=== PATIENT | female | born 1995 | race Caucasian/White ===

== ENCOUNTER → 2024-02-16 09:04 | Outpatient (REF) | payer BC, OTHER, SELFPAY | LOC: CPAP 09:04 | PROVIDERS: ATTENDING PHYSICIAN Nurse Practitioner Family | DX: Z34.90 Encounter for supervision of normal pregnancy, unspecified, unspecified trimester (principal); Z01.419 Encounter for gynecological examination (general) (routine) without abnormal findings; Z12.4 Encounter for screening for malignant neoplasm of cervix; Z11.51 Encounter for screening for human papillomavirus (HPV) | CPT/HCPCS: G0123 ==

== ENCOUNTER → 2024-04-18 07:39 | Outpatient (REF) | payer BC, OTHER, SELFPAY ==
[2024-04-18 10:45] LABS: ALT (SGPT) 17 U/L (0-35); AST (SGOT) 27 U/L (14-36); Albumin 4.4 g/dl (3.5-5.0); Alkaline Phosphatase 51 U/L (38-126); Blood Urea Nitrogen 10 mg/dl (7-17); Calcium 9.4 mg/dl (8.4-10.2); Carbon Dioxide 25 mmol/L (22-30); Chloride 102 mmol/L (98-107); Glucose 86 mg/dl (70-99); Potassium 4.4 mmol/L (3.5-5.1); Sodium 138 mmol/L (135-145); Total Bilirubin 0.5 mg/dl (0.2-1.3); Total Protein 7.6 g/dl (6.3-8.2); eGFR > 60.00
[2024-04-18 11:06] LABS: Free T4 1.38 ng/dl (0.78-2.19); Prolactin 81.7 ng/ml (3.0-18.6)
[2024-04-18 11:20] LABS: TSH 4.32 uIU/ml (0.47-4.68)
[2024-04-20 06:03] LABS: IGF-1 Z Score Calculation -0.4; Insulin-like Growth Factor I 170 ng/mL (98-305)
== END ==
LOC: REG 07:39
PROVIDERS: ATTENDING PHYSICIAN Internal Medicine Endocrinology, Diabetes & Metabolism; FAMILY PHYSICIAN Student in an Organized Health Care Education/Training Program
DX: E89.0 Postprocedural hypothyroidism (principal); E22.1 Hyperprolactinemia; Z86.39 Personal history of other endocrine, nutritional and metabolic disease; Z92.3 Personal history of irradiation
CPT/HCPCS: 36415; 80053; 84146; 84305; 84439; 84443

== ENCOUNTER → 2024-12-06 07:39 | Outpatient (REF) | payer BC, SELFPAY ==
[2024-12-06 08:35] LABS: Hemoglobin 12.6 g/dL (12.0-16.0); Mean Corp Hgb Conc. 34.1 g/dL (33.0-37.0); Mean Corpuscular Hgb 30.1 pg (27.0-31.0); Mean Corpuscular Volume 88.5 fL (81.0-99.0); Mean Platelet Volume 11.1 fL (7.4-10.4); Platelet Count 286 10^3/uL (130-400); Red Blood Cell Count 4.18 10^6/uL (4.20-5.40); Red Cell Dist. Width 12.8 % (11.5-14.5); White Blood Cell Count 8.5 10^3/uL (4.8-10.8)
[2024-12-06 09:10] LABS: ALT (SGPT) 18 U/L (0-35); AST (SGOT) 30 U/L (14-36); Albumin 4.2 g/dl (3.5-5.0); Alkaline Phosphatase 49 U/L (38-126); Blood Urea Nitrogen 11 mg/dl (7-17); Calcium 8.6 mg/dl (8.4-10.2); Carbon Dioxide 28 mmol/L (22-30); Chloride 101 mmol/L (98-107); Glucose 89 mg/dl (70-99); HDL Cholesterol 77 mg/dl; LDL Cholesterol, Calculated 53 mg/dl; Potassium 4.3 mmol/L (3.5-5.1); Sodium 137 mmol/L (135-145); Total Bilirubin 0.5 mg/dl (0.2-1.3); Total Cholesterol 163 mg/dl (50-199); Total Protein 7.1 g/dl (6.3-8.2); Triglyceride 165 mg/dl (10-149); Very Low Density Lipoprotein 33 mg/dl (0-30); eGFR > 60.00
[2024-12-06 09:30] LABS: Prolactin 77.4 ng/ml (3.0-18.6)
[2024-12-06 09:41] LABS: TSH Reflex To Free T4 4.52 uIU/ml (0.47-4.68)
[2024-12-06 09:45] LABS: Ferritin 70.3 ng/ml (6.24-137)
[2024-12-06 10:17] LABS: Folate 13.1 ng/ml (2.76-20); Vitamin B12 514 pg/ml (239-931)
[2024-12-06 10:39] LABS: Glycohemoglobin (HgbA1c) 5.6 % (4.0-5.6)
[2024-12-07 21:47] LABS: Vitamin D 1,25 Dihydroxy 82.7 pg/mL (19.9-79.3)
== END ==
LOC: REG 07:39
PROVIDERS: ATTENDING PHYSICIAN Nurse Practitioner Family
DX: Z13.21 Encounter for screening for nutritional disorder (principal); R79.0 Abnormal level of blood mineral; E78.1 Pure hyperglyceridemia; R79.89 Other specified abnormal findings of blood chemistry; E03.9 Hypothyroidism, unspecified
CPT/HCPCS: 36415; 80053; 80061; 82607; 82652; 82728; 82746; 83036; 84146; 84443; 85027

== ENCOUNTER → 2025-05-30 07:23 | Outpatient (REF) | payer BC, SELFPAY ==
[2025-05-30 09:09] LABS: Vitamin D, 25-OH*** 35.3 ng/mL (30-80)
[2025-05-30 09:22] LABS: TSH 1.87 uIU/ml (0.47-4.68)
[2025-06-01 14:10] LABS: IGF-1 Z Score Calculation -1.4
== END ==
LOC: REG 07:23
PROVIDERS: ATTENDING PHYSICIAN Internal Medicine Endocrinology, Diabetes & Metabolism
DX: E22.1 Hyperprolactinemia (principal); E89.0 Postprocedural hypothyroidism
CPT/HCPCS: 36415; 82306; 84305; 84439; 84443